=== PATIENT | female | born 1935 | race Caucasian/White ===

== ENCOUNTER 2017-06-03 09:10 | Inpatient (IN) | payer MEDICARE, OTHER ==
[~2017-06-03] VITALS: Ht 157.5 cm; Wt 84.0 kg
[~2017-06-03 09:10] MED LIST: ASPIRIN ADULT L81 M5 PO; ATENOLOL50 MG PO; COZAAR100 MG PO; DIPHENOXYLATE W1 TAB PO; HYDROCHLOROTH12.5 M2 PO; SIMVASTATIN40 M1 PO; ULORIC40 M1 PO
[2017-06-03 09:49] LABS: BASOPHIL % 0.2 % (0-2); PLATELET COUNT 181 x10^3mcL (130-400); RED CELL DISTRIBUTION WIDTH 13.4 % (11.5-14.5)
[2017-06-03 09:53] LABS: CALCIUM 9.2 mg/dL (8.5-10.1); CARBON DIOXIDE 26.4 mmol/L (21-32); CHLORIDE SERUM 104 mmol/L (98-107); CREATININE SERUM 1.7 mg/dL (0.6-1.0); GLUCOSE SERUM 150 mg/dL (74-106); POTASSIUM SERUM 4.2 mmol/L (3.5-5.1); SODIUM SERUM 138 mmol/L (136-145)
[2017-06-03 09:57] LABS: ALKALINE PHOSPHATASE 26 U/L (46-116); ALT/SGPT 18 U/L (14-59); AST/SGOT 13 U/L (15-37); BILIRUBIN TOTAL 0.5 mg/dL (0.20-1.00)
[2017-06-03 09:58] LABS: ALBUMIN 3.3 g/dL (3.4-5.0); TOTAL PROTEIN, SERUM 8.3 g/dL (6.4-8.2)
[2017-06-03] MEDS ORDERED: ALPRAZOLAM0.25 MG PO (11:20)
[2017-06-03] MEDS ORDERED: MECLIZINE HYDRO25 M1 PO (11:22)
[2017-06-03] MEDS ORDERED: DICLOFENAC SODIUM (11:23)
[2017-06-03 12:10] LABS: MAGNESIUM 1.4 mg/dL (1.8-2.4); PHOSPHOROUS 3.9 mg/dL (2.5-4.9)
[2017-06-03 12:11] LABS: T3 TOTAL 1.07 ng/mL
[2017-06-03 12:14] LABS: CHOLESTEROL/HDL RATIO 2.5
[2017-06-03 12:21] LABS: FREE T4 1.16 ng/dL (0.76-1.46); FREE THYROXINE INDEX 2.7 ug/dL (1.4-4.5); T4(THYROXINE) 8.2 ug/dL (4.7-13.3)
[2017-06-03 22:16] VITALS: BP 130/70
[2017-06-03 23:18] LABS: microscopic required? NO
[2017-06-03 23:25] LABS: urine erythrocyte NEGATIVE (NEGATIVE)
[2017-06-04] VITALS (7 sets, daily range): BP systolic 120–138; BP diastolic 59–76
[2017-06-04 06:50] LABS: BASOPHIL % 0.3 % (0-2); PLATELET COUNT 157 x10^3mcL (130-400); RED CELL DISTRIBUTION WIDTH 13.1 % (11.5-14.5)
[2017-06-04 06:55] LABS: CALCIUM 8.7 mg/dL (8.5-10.1); CARBON DIOXIDE 26.4 mmol/L (21-32); CHLORIDE SERUM 106 mmol/L (98-107); CREATININE SERUM 1.4 mg/dL (0.6-1.0); GLUCOSE SERUM 113 mg/dL (74-106); MAGNESIUM 1.9 mg/dL (1.8-2.4); POTASSIUM SERUM 4.3 mmol/L (3.5-5.1); SODIUM SERUM 142 mmol/L (136-145)
[2017-06-05 07:02] VITALS: BP 171/74
[2017-06-05 09:36] VITALS: BP 143/82
[2017-06-05] MEDS ORDERED: NORCO1 TA2 PO (09:39)
[2017-06-05] MEDS ORDERED: TYL325 PO (13:20)
[2017-06-05] MEDS ORDERED: SIMVASTATIN10 M1 PO (13:46)
== END 2017-06-05 14:55 | disposition home health service (06) | DRG 640 ==
LOC: ED 09:10 → MU 11:15 → DU 11:15 → MU 06-05 08:58
PROVIDERS: Emergency Medicine; ADMIT Family Medicine
DX: E86.0 Dehydration (principal); N17.0 Acute kidney failure with tubular necrosis; G50.0 Trigeminal neuralgia; R73.03 Prediabetes; E83.42 Hypomagnesemia; I10 Essential (primary) hypertension; D64.9 Anemia, unspecified; E78.5 Hyperlipidemia, unspecified; M19.90 Unspecified osteoarthritis, unspecified site; Z68.33 Body mass index [BMI] 33.0-33.9, adult
CPT/HCPCS: 82962; 83880; 84439; 97110-GP; 97116-GP; J3475; J7030; J8597; Q0092

== ENCOUNTER 2020-09-06 16:25 | Emergency (ER) | payer MEDICARE, OTHER ==
[~2020-09-06 16:25] MED LIST changes: +ALPRAZOLAM0.25 MG PO; +DICLOFENAC SODIUM; +MECLIZINE HYDRO25 M1 PO; +NORCO1 TA2 PO; +SIMVASTATIN10 M1 PO; +TYL325 PO
[2020-09-06 17:49] VITALS: BP 131/50
== END 2020-09-06 20:24 | disposition home or self-care (01) ==
LOC: ED 16:25
DX: S00.83XA Contusion of other part of head, initial encounter (principal); I10 Essential (primary) hypertension; M19.90 Unspecified osteoarthritis, unspecified site; E78.5 Hyperlipidemia, unspecified; W01.0XXA Fall on same level from slipping, tripping and stumbling without subsequent striking against object, initial encounter; Y93.89 Activity, other specified; Y92.89 Other specified places as the place of occurrence of the external cause; Y99.8 Other external cause status